=== PATIENT | male | born 1965 | race Caucasian/White ===

== ENCOUNTER 2016-08-31 03:35 | Emergency (ER) | payer BC ==
[2016-08-31 04:11] LABS: BASO % 0.2 % (0-6); EOS % 2.1 % (0-6); GRAN % 35.2 % (47-80); HEMATOCRIT 40.2 % (42.0-52.0); HEMOGLOBIN 14.3 gm/dl (14.0-18.0); LYMPH % 50.9 % (16-45); MEAN CELL VOLUME 91.4 fl (81-97); MEAN CORPUSCULAR HEMOGLOBIN 32.5 pg (27-33); MEAN CORPUSCULAR HGB CONC 35.6 g/dl (32-36); MEAN PLATELET VOLUME 8.8 fl (7.4-10.4); MONO % 11.6 % (0-9); PLATELET COUNT 146 K/uL (130-400); RED CELL DISTRIBUTION WIDTH 11.8 % (11.5-14.5); WHITE BLOOD COUNT W/O DIFF 5.2 K/uL (4.2-12.2)
[2016-08-31] MEDS: ASPIRIN 81 MG CHEWABLE TABLET PO ONE (04:12)
[2016-08-31 04:22] LABS: ANION GAP 7.8 (7-16); BLOOD UREA NITROGEN 29 mg/dL (9-20); CARBON DIOXIDE 30.2 mmol/L (22-30); CREATININE 0.7 mg/dL (0.66-1.25); EST GLOMERULAR FILTRATION RATE > 60 ml/min; GLUCOSE,RANDOM 92 mg/dL (70-110)
[2016-08-31 04:23] LABS: ALB/GLOB RATIO 1.4 (1.1-1.8); ALBUMIN 4.4 gm/dL (3.5-5.0); ALKALINE PHOSPHATASE 76 U/L (38-126); ALT/SGPT 30 U/L (21-72); AST/SGOT 23 U/L (17-59); BILIRUBIN,TOTAL 0.74 mg/dL (0.2-1.3); CREATINE PHOSPHOKINASE 47 U/L (55-170); TOTAL PROTEIN 7.6 gm/dL (6.3-8.2)
[2016-08-31 04:34] LABS: CKMB 0.7 ug/L (0-6)
[2016-08-31 04:35] LABS: TROPONIN I < 0.012 ng/mL (0.00-0.034)
--- NOTE | 2016-08-31 04:45 | Emergency Department Record ---
History of Present Illness - General Chief Complaint: Chest Pain Stated Complaint: CHEST PAIN Time Seen by Provider: 08/31/16 03:56 Source: Patient Mode of Arrival: Ambulatory Limitations: No limitations - History of Present Illness Initial Comments: pt has been having cp for 5 months when he lays down. he also gets palpitations with the pain. pt has not been to a dr in years. pt states he had a problem with a valve as a child but he has never seen a cash applications representative MD Complaint: Chest pain Onset/Timin -: Hour(s) Onset: During rest Pain Location: Left chest Pain Radiation: LUE Severity: Mild Quality: Other Consistency: Constant Improves With: Nothing Worsens With: Supine Anginal Symptoms: Other Treatments Prior to Arrival: None - Related Data Home Medications Medication Instructions Recorded Confirmed Last Taken Cholecalciferol (Vitamin D3) 5,000 unit PO ASDIR 08/31/16 08/31/16 Unknown [Vitamin D3] Garlic [Odorless Garlic] 1,250 mg PO DAILY 08/31/16 08/31/16 Unknown Multivitamin [Multiple Vitamins] 1 each PO DAILY 08/31/16 08/31/16 Unknown Nitric Acid 1 ml MC ASDIR 08/31/16 08/31/16 Unknown [place]-3 Fatty Acids/Fish Oil [Fish 1 each PO DAILY 08/31/16 08/31/16 Unknown Oil 1,000 mg Capsule] Ubidecarenone [Co Q-10] 10 mg PO DAILY 08/31/16 08/31/16 Unknown Allergies Allergy/AdvReac Type Severity Reaction Status Date / Time nitrous oxide [NITROUS OXIDE] Allergy Unknown RASH Verified 08/31/16 03:45 Travel Screening - Travel/Exposure Within Last 30 Days Have you traveled within the last 30 days?: No - Travel/Exposure Within Last Year Have you traveled outside the [place] in the last year?: No - Additonal Travel Details Have you been exposed to anyone with a communicable illness?: No Review of Systems Reviewed: No additional complaints except as noted below Constitutional: Reports: As per HPI. Denies: Chills, Fever, Malaise, Night sweats, Weakness, Weight change Eyes: Reports: As per HPI. Denies: Eye discharge, Eye pain, Photophobia, Vision change ENT: Reports: As per HPI. Denies: Congestion, Dental pain, Ear pain, Epistaxis , Hearing loss, Throat pain Respiratory: Reports: As per HPI. Denies: Cough, Dyspnea, Hemoptysis, Stridor, Wheezes Cardiovascular: Reports: As per HPI. Denies: Arrhythmia, Chest pain, Dyspnea on exertion, Edema, Murmurs, Orthopnea, Palpitations, Paroxysmal nocturnal dyspnea, Rheumatic Fever, Syncope Endocrine: Reports: As per HPI. Denies: Fatigue, Heat or cold intolerance, Polydipsia, Polyuria Gastrointestinal: Reports: As per HPI. Denies: Abdominal pain, Constipation, Diarrhea, Hematemesis, Hematochezia, Melena, Nausea, Vomiting Genitourinary: Reports: As per HPI. Denies: Dysuria, Frequency, Hematuria, Incontinence, Retention, Testicular pain, Testicular mass, Urgency Musculoskeletal: Reports: As per HPI. Denies: Arthralgia, Back pain, Gout, Joint swelling, Myalgia, Neck pain Skin: Reports: As per HPI. Denies: Bruising, Change in color, Change in hair/ nails, Lesions, Pruritus, Rash Neurological: Reports: As per HPI. Denies: Abnormal gait, Confusion, Headache, Numbness, Paresthesias, Seizure, Tingling, Tremors, Vertigo, Weakness Psychiatric: Reports: As per HPI. Denies: Anxiety, Auditory hallucinations, Depression, Homicidal thoughts, Suicidal thoughts, Visual hallucinations Hematological/Lymphatic: Reports: As per HPI. Denies: Anemia, Blood Clots, Easy bleeding, Easy bruising, Swollen glands Past Medical History - SOCIAL HISTORY Smoking Status: Never smoker Alcohol Use: None Drug Use: None - RESPIRATORY Hx Respiratory Disorders: No - CARDIOVASCULAR Hx Cardio Disorders: Yes Comment:: " defect heart valve" - NEURO Hx Neuro Disorders: No - GI Hx GI Disorders: No - Hx Genitourinary Disorders: No - ENDOCRINE Hx Endocrine Disorders: No - MUSCULOSKELETAL Hx Musculoskeletal Disorders: No - PSYCH Hx Psych Problems: Yes Hx Depression: Yes - HEMATOLOGY/ONCOLOGY Hx Hematology/Oncology Disorders: No Family Medical History Any Significant Family History?: Yes Family Hx Comment (NOT TO BE USED IN PLACE OF ITEMS BELOW): replacement valves "whole family" Physical Exam - General General Appearance: Alert, Oriented x3, Cooperative, Mild distress - Head Head exam: Normal inspection - Eye Eye exam: Normal appearance, PERRL, EOMI Pupils: Normal accommodation - ENT ENT exam: Normal exam, Mucous membranes moist, Normal external ear exam, Normal orophraynx Ear exam: Normal external inspection. negative: External canal tenderness Nasal Exam: Normal inspection. negative: Discharge, Sinus tenderness Mouth exam: Normal external inspection, Tongue normal Teeth exam: Normal inspection. negative: Dental caries Throat exam: Normal inspection. negative: Tonsillar erythema, Tonsillar exudate - Neck Neck exam: Normal inspection, Full ROM. negative: Tenderness - Respiratory Respiratory exam: Normal lung sounds bilaterally. negative: Respiratory distress - Cardiovascular Cardiovascular Exam: Regular rate, Normal rhythm, Normal heart sounds - GI/Abdominal GI/Abdominal exam: Soft, Normal bowel sounds. negative: Tenderness - Rectal Rectal exam: Deferred - exam: Deferred - Extremities Extremities exam: Normal inspection, Full ROM, Normal capillary refill. negative: Tenderness - Back Back exam: Reports: Normal inspection, Full ROM. Denies: Muscle spasm, Rash noted, Tenderness - Neurological Neurological exam: Alert, CN II-XII intact, Normal gait, Oriented X3 - Psychiatric Psychiatric exam: Normal affect, Normal mood - Skin Skin exam: Dry, Intact, Normal color, Warm Course Vital Signs 08/31/16 03:40 Temperature 97.9 F Pulse Rate [ 72 Pulse Ox Probe] Respiratory 18 Rate Pulse Ox 97 - Reevaluation(s) Reevaluation #1: 08/31/16 05:39 pn occurs only when he lays flat. 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 ADM/Transfer/OP Study) - Data Complexity MDM Data: Labs Ordered and/or Reviewed, X-Ray Ordered and/or Reviewed, EKG Ordered and/or Reviewed - Lab Data Result diagrams: 08/31/16 04:05 08/31/16 04:05 Lab Results 08/31/16 08/31/16 08/31/16 Range/Units 04:05 04:05 04:05 WBC 5.2 (4.2-12.2) K/uL RBC 4.40 (4.40-5.70) M/uL Hgb 14.3 (14.0-18.0) gm/dl Hct 40.2 L (42.0-52.0) % MCV 91.4 (81-97) fl MCH 32.5 (27-33) pg MCHC 35.6 (32-36) g/dl RDW 11.8 (11.5-14.5) % Plt Count 146 (130-400) K/uL MPV 8.8 (7.4-10.4) fl Gran % 35.2 L (47-80) % Lymphocytes % 50.9 H (16-45) % Monocytes % 11.6 H (0-9) % Eosinophils % 2.1 (0-6) % Basophils % 0.2 (0-6) % D-Dimer < 0.19 (0-0.59) mg/L FEU Sodium 140 (136-145) mmol/L Potassium 3.9 (3.5-5.1) mmol/L Chloride 102 (98-107) mmol/L Carbon Dioxide 30.2 H (22-30) mmol/L Anion Gap 7.8 (7-16) BUN 29 H (9-20) mg/dL Creatinine 0.7 (0.66-1.25) mg/dL Estimated GFR > 60 ml/min Random Glucose 92 (70-110) mg/dL Calcium 9.8 (8.5-10.1) mg/dL Total Bilirubin 0.74 (0.2-1.3) mg/dL AST 23 (17-59) U/L ALT 30 (21-72) U/L Alkaline Phosphatase 76 (38-126) U/L Creatine Kinase 47 L (55-170) U/L CK-MB (CK-2) 0.7 (0-6) ug/L Troponin I < 0.012 (0.00-0.034) ng/mL NT-Pro-B Natriuret Pep 25.70 (<125) pg/mL Total Protein 7.6 (6.3-8.2) gm/dL Albumin 4.4 (3.5-5.0) gm/dL Globulin 3.2 (1.4-4.8) gm/dL Albumin/Globulin Ratio 1.4 (1.1-1.8) - EKG Data -: EKG Interpreted by Hi EKG: No Acute Changes - Radiology Data Radiology results: Image reviewed -: Radiology Exam Interpreted by Myself Disposition Disposition: Discharge Clinical Impression: Chest pain Qualifiers: Chest pain type: other chest pain Qualified Code(s): R07.89 - Other chest pain Disposition: Home, Self-Care Condition: (1) Good Instructions: Chest Pain (ED) Additional Instructions: follow up with cash applications representative today, Dr. Marley.call his office at [phone] to get time. return sooner if worse Referrals: JASON MARLEY M.D. [MEDICAL DOCTOR] - [facility] [Provider Group] Forms: Patient Portal Access
--- NOTE | 2016-09-01 07:24 | RADIOLOGY REPORT ---
EXAM: CHEST, TWO VIEWS HISTORY: LEFT CHEST PRESSURE. LEFT ARM NUMBNESS FOR FOUR MONTHS. TECHNIQUE: Upright PA and lateral views of the chest were obtained. Comparison: CT of the abdomen and pelvis with contrast dated 05/24/13. FINDINGS: The heart is not enlarged and the pulmonary vasculature is nondilated. The lungs and pleural spaces are clear. Anterior marginal end plate spurring is noted at the lower thoracic levels. IMPRESSION: NO RADIOGRAPHIC EVIDENCE OF ACUTE CARDIOPULMONARY DISEASE. JOB NUMBER: [id number] [facility]
== END 2016-08-31 06:27 | disposition home or self-care (01) ==
LOC: ER 03:35
DX: R07.89 Other chest pain (principal); R20.0 Anesthesia of skin; I49.9 Cardiac arrhythmia, unspecified
CPT/HCPCS: 71020; 80053; 82550; 82553; 83880; 84484; 85025; 85379; 85651; 93005; 93010; 99284